=== PATIENT | male | born 1945 | race Caucasian/White ===

== ENCOUNTER → 2017-07-26 | Outpatient (CLI) | payer OTHER | END | disposition home or self-care (01) | LOC: OIH 09:01 | PROVIDERS: ATTEND Family Medicine | DX: J44.9 Chronic obstructive pulmonary disease, unspecified (principal); M47.894 Other spondylosis, thoracic region; M85.88 Other specified disorders of bone density and structure, other site | CPT/HCPCS: 71046 ==

== ENCOUNTER 2018-08-17 11:31 | Inpatient (IN) | payer OTHER | END 2018-08-18 14:05 | disposition left against medical advice (07) | LOC: EDH 11:31 → EDHIP 14:05 → 2DH 21:20 | PROC: 4A023N7 Measurement of Cardiac Sampling and Pressure, Left Heart, Percutaneous Approach (ICD-10-PCS; principal; ~2018-08-17) | PROC: B2111ZZ Fluoroscopy of Multiple Coronary Arteries using Low Osmolar Contrast (ICD-10-PCS; ~2018-08-17) | PROC: B2151ZZ Fluoroscopy of Left Heart using Low Osmolar Contrast (ICD-10-PCS; ~2018-08-17) | DX: I21.4 Non-ST elevation (NSTEMI) myocardial infarction (principal); N17.9 Acute kidney failure, unspecified; I24.9 Acute ischemic heart disease, unspecified; I48.91 Unspecified atrial fibrillation; I10 Essential (primary) hypertension ==

== ENCOUNTER → 2018-09-04 | Outpatient (CLI) | payer OTHER ==
[~2018-09-04] VITALS: Ht 180.3 cm; Wt 85.7 kg
[~2018-09-04] MED LIST: AEC81 PO; AMOX1TAB16 PO; ATOR10 PO; CEFUROXIME SODIUM 1.5 GM VIAL IVP SCH; CHOL400T4 PO; FOLI1TAB15 PO; LAMO100T13 PO; LEVE750T10 PO; LISI-613 PO; METO50TA18 PO; PHEN100C9 PO; SERT100T12 PO
[2018-09-04 12:16] LABS: BASOPHILS % (AUTO) 0.7 % (0.0-5.0); EOSINOPHILS % (AUTO) 8.2 % (0.0-8.0); HEMATOCRIT 36.3 % (42-54); LYMPHOCYTES % (AUTO) 19.7 % (21.0-51.0); MEAN CORPUSCULAR HEMOGLOBIN 32.2 pg (27.0-33.0); MEAN CORPUSCULAR HGB CONC 34.2 g/dL (32.0-36.0); MONOCYTES % (AUTO) 8.8 % (3.0-13.0); NEUTROPHILS % (AUTO) 62.6 % (40.0-77.0); PLATELET COUNT (AUTO) 243 K/uL (130-400); RED BLOOD CELL COUNT(AUTO) 3.86 MIL/uL (4.50-6.20); RED CELL DISTRIBUTION WIDTH 13.3 % (11.0-15.5); WHITE BLOOD COUNT (AUTO) 10.5 K/uL (4.8-10.8)
[2018-09-04 12:22] VITALS: BP 181/103
[2018-09-04 12:29] LABS: HEMOGLOBIN A1C 6.8 % (4.0-6.0)
[2018-09-04 12:33] LABS: ALBUMIN 3.6 g/dL (3.5-5.0); BILIRUBIN,TOTAL 0.2 mg/dL (0.2-1.0); CREATININE 1.5 mg/dL (0.5-1.5); POTASSIUM 5.2 mmol/L (3.5-5.1); TOTAL PROTEIN, SERUM 7.8 g/dL (6.0-8.3)
[2018-09-04 12:34] LABS: INR 0.96 (0.85-1.15); PROTHROMBIN TIME 10.1 SEC (9.6-11.6)
[2018-09-04 13:31] LABS: ABG BASE EXCESS -4.7 mmol/L (-2.0-3.0); ABG HCO3 19.7 mmol/L (21.0-28.0); ABG OXYGEN SATURATION 95.9 % (95.0-99.0); ABG PCO2 35 mmHg (35-48)
== END | disposition home or self-care (01) ==
LOC: DAH 10:00 → EDSTATUS 09-07 07:30
PROVIDERS: ATTEND Thoracic Surgery (Cardiothoracic Vascular Surgery)
DX: I65.23 Occlusion and stenosis of bilateral carotid arteries (principal); I25.10 Atherosclerotic heart disease of native coronary artery without angina pectoris; Z95.1 Presence of aortocoronary bypass graft; Z79.01 Long term (current) use of anticoagulants; I82.90 Acute embolism and thrombosis of unspecified vein; I26.99 Other pulmonary embolism without acute cor pulmonale; Z98.890 Other specified postprocedural states; Z79.899 Other long term (current) drug therapy
CPT/HCPCS: 36415; 36600; 71046; 80053; 80061; 82803; 83036; 85025; 85610; 85730; 86850; 86900; 86901; 93005; 93306; 93880; 94010

== ENCOUNTER → 2019-10-03 | Outpatient (CLI) | payer OTHER ==
[~2019-10-03] MED LIST changes: -AMOX1TAB16 PO; -CEFUROXIME SODIUM 1.5 GM VIAL IVP SCH; -LAMO100T13 PO; +LAMO100T16 PO
== END | disposition home or self-care (01) ==
LOC: OIH 15:43
PROVIDERS: ATTEND Family Medicine
DX: M47.26 Other spondylosis with radiculopathy, lumbar region (principal); M43.8X4 Other specified deforming dorsopathies, thoracic region; M25.78 Osteophyte, vertebrae
CPT/HCPCS: 72100

== ENCOUNTER → 2019-12-18 | Outpatient (CLI) | payer OTHER ==
[~2019-12-18] MED LIST changes: +GADODIAMIDE 10 MMOL/20 ML VIAL IV ONE
== END | disposition home or self-care (01) ==
LOC: RAH 13:48
PROVIDERS: ATTEND Family Medicine
DX: M47.814 Spondylosis without myelopathy or radiculopathy, thoracic region (principal); M48.04 Spinal stenosis, thoracic region; M25.78 Osteophyte, vertebrae
CPT/HCPCS: 72146; A9579

== ENCOUNTER 2020-12-27 20:23 | Inpatient (IN) | payer OTHER ==
[~2020-12-27] VITALS: Ht 180.3 cm; Wt 73.4 kg
[~2020-12-27 20:23] MED LIST changes: -GADODIAMIDE 10 MMOL/20 ML VIAL IV ONE; -LISI-613 PO; +LISI20TA24 PO; +SERT-440 PO; -SERT100T12 PO
[2020-12-27 20:35] VITALS: BP 163/92
[2020-12-27] MEDS ORDERED: IPRATROPIUM/ALBUTEROL SULFATE 3 ML SOLUTION IH SCH (21:30)
[2020-12-27] MEDS ORDERED: MORPHINE 2 MG SYG (2MG/1ML) IVP SCH (21:30)
[2020-12-27] MEDS ORDERED: ONDANSETRON HCL 4 MG/2 ML VIAL IVP SCH (21:30)
[2020-12-27] MEDS ORDERED: IPRATROPIUM/ALBUTEROL SULFATE 3 ML SOLUTION IH ONE (21:32)
[2020-12-27 21:40] LABS: BASOPHILS % (AUTO) 0.4 % (0.0-5.0); EOSINOPHILS % (AUTO) 4.9 % (0.0-8.0); HEMATOCRIT 35.7 % (42-54); LYMPHOCYTES % (AUTO) 11.5 % (21.0-51.0); MEAN CORPUSCULAR HGB CONC 33.6 g/dL (32.0-36.0); MEAN CORPUSCULAR VOLUME 92.2 fL (79-99); MONOCYTES % (AUTO) 8.9 % (3.0-13.0); NEUTROPHILS % (AUTO) 73.6 % (40.0-77.0); PLATELET COUNT (AUTO) 206 K/uL (130-400); RED BLOOD CELL COUNT(AUTO) 3.87 MIL/uL (4.50-6.20); RED CELL DISTRIBUTION WIDTH 12.7 % (11.0-15.5); WHITE BLOOD COUNT (AUTO) 14.6 K/uL (4.8-10.8)
[2020-12-27 21:51] LABS: INR 0.98 (0.85-1.15); PROTHROMBIN TIME 10.7 SEC (9.6-11.6)
[2020-12-27 21:58] LABS: CARBON DIOXIDE 22 mmol/L (21-32); CHLORIDE 103 mmol/L (101-111); CREATININE 1.9 mg/dL (0.5-1.5); GLOMERULAR FILTR. RATE CALC 37 mL/min (>60); GLUCOSE,RANDOM 117 mg/dL (70-105); POTASSIUM 4.4 mmol/L (3.5-5.1); SODIUM SERUM 137 mmol/L (136-145); UREA NITROGEN, BLOOD 36 mg/dL (7-18)
[2020-12-27 22:12] LABS: ALANINE AMINOTRANSFERASE 28 U/L (12-78); ALBUMIN 3.6 g/dL (3.5-5.0); ASPARTATE AMINOTRANSFERASE 24 U/L (10-37); BILIRUBIN,TOTAL 0.2 mg/dL (0.2-1.0); CREATINE KINASE, TOTAL 257 U/L (21-232); LIPASE 185 U/L (114-286); MYOGLOBIN 742 ng/mL (10-92); TOTAL PROTEIN, SERUM 7.7 g/dL (6.0-8.3); TROPONIN I < 0.04 ng/mL (0.00-0.06)
[2020-12-27] MEDS ORDERED: HYDROCODONE/ACETAMINOPHEN 5/325 MG TAB PO ONE (22:45)
[2020-12-27 23:23] LABS: APPEARANCE,URINE Clear (CLEAR); BILIRUBIN,URINE Negative (NEGATIVE); COLOR,URINE Yellow (YELLOW); GLUCOSE, URINE (UA) Negative (NEGATIVE); KETONES,URINE Negative (NEGATIVE); LEUKOCYTE ESTERASE ,URINE Negative (NEGATIVE); NITRATE,URINE Negative (NEGATIVE); OCCULT BLOOD,URINE Small (NEGATIVE); PH,URINE 5.5 (5.0-8.0); PROTEIN,URINE POS 1+ mg/dL (NEGATIVE); UROBILINOGEN,URINE 0.2 mg/dL (0.2-1.0)
[2020-12-27 23:55] LABS: BACTERIA,URINE None Seen /HPF (None Seen); WBC,URINE 0-1 /HPF (0-1)
[2020-12-28] VITALS (9 sets, daily range): BP systolic 147–190; BP diastolic 60–93
[2020-12-28] MEDS ORDERED: SODIUM CHLORIDE 0.9% 500ML 500 ML IV SCH (01:00)
[2020-12-28] MEDS ORDERED: ACETAMINOPHEN 325 MG TAB PO PRN ×2 (01:30)
[2020-12-28] MEDS ORDERED: ONDANSETRON HCL 4 MG/2 ML VIAL IV PRN (01:30)
[2020-12-28] MEDS: IPRATROPIUM/ALBUTEROL SULFATE 3 ML SOLUTION IH SCH ×6 (02:14→23:20)
[2020-12-28 05:35] LABS: HEMATOCRIT 34.6 % (42-54); MEAN CORPUSCULAR HGB CONC 33.8 g/dL (32.0-36.0); MEAN CORPUSCULAR VOLUME 91.8 fL (79-99); RED BLOOD CELL COUNT(AUTO) 3.77 MIL/uL (4.50-6.20); RED CELL DISTRIBUTION WIDTH 12.8 % (11.0-15.5); WHITE BLOOD COUNT (AUTO) 12.4 K/uL (4.8-10.8)
[2020-12-28 05:57] LABS: ALANINE AMINOTRANSFERASE 28 U/L (12-78); ALBUMIN 3.8 g/dL (3.5-5.0); ASPARTATE AMINOTRANSFERASE 30 U/L (10-37); BILIRUBIN,TOTAL 0.4 mg/dL (0.2-1.0); CARBON DIOXIDE 21 mmol/L (21-32); CHLORIDE 102 mmol/L (101-111); CREATININE 1.8 mg/dL (0.5-1.5); GLOMERULAR FILTR. RATE CALC 39 mL/min (>60); GLUCOSE,RANDOM 179 mg/dL (70-105); MYOGLOBIN 446 ng/mL (10-92); POTASSIUM 4.2 mmol/L (3.5-5.1); SODIUM SERUM 136 mmol/L (136-145); TOTAL PROTEIN, SERUM 7.8 g/dL (6.0-8.3); TROPONIN I < 0.04 ng/mL (0.00-0.06); UREA NITROGEN, BLOOD 31 mg/dL (7-18)
[2020-12-28 06:03] LABS: CREATINE KINASE, TOTAL 478 U/L (21-232)
[2020-12-28] MEDS: FAMOTIDINE 20MG TAB 20 MG TAB PO SCH ×2 (08:11→20:59)
[2020-12-28] MEDS: LACTATED RINGERS 1000ML 1,000 ML IV SCH (08:11)
[2020-12-28] MEDS: LEVETIRACETAM 250 MG TABLET PO SCH ×2 (08:11→20:56)
[2020-12-28] MEDS: METOPROLOL TARTRATE 50 MG TAB PO SCH ×2 (08:11→20:59)
[2020-12-28] MEDS: PHENYTOIN SODIUM 100 MG ERCAP PO SCH ×2 (08:11→20:55)
[2020-12-28] MEDS: LAMOTRIGINE 100 MG TABLET PO SCH ×2 (08:11→20:59)
[2020-12-28] MEDS: LISINOPRIL 20 MG TABLET PO SCH (08:12)
[2020-12-28] MEDS: SERTRALINE HCL 50 MG TABLET PO SCH (08:12)
[2020-12-28] MEDS: CEFTRIAXONE SODIUM 1 GM IVP SCH ×2 (12:51→20:59)
[2020-12-28] MEDS ORDERED: LORAZEPAM 2 MG/ML 1 ML VIAL IVP PRN (17:00)
[2020-12-28] MEDS ORDERED: PHARMACY COMMUNICATION MISC PRN (17:00)
[2020-12-28] MEDS ORDERED: CHLORDIAZEPOXIDE HCL 25 MG CAP PO PRN ×2 (17:00)
[2020-12-28] MEDS ORDERED: HYDRALAZINE HCL 20 MG/ML VIAL ONE (20:22)
[2020-12-28] MEDS: NICOTINE 14 MG/ 24 HR PATCH TD SCH (20:51)
[2020-12-28] MEDS: LORAZEPAM 2 MG/ML 1 ML VIAL IVP PRN (21:14)
[2020-12-28] MEDS ORDERED: PHENYTOIN SODIUM 50 MG/ML 2ML VIAL IV SCH (21:30)
[2020-12-28] MEDS ORDERED: LEVETIRACETAM 1,000 MG in SODIUM CHLORIDE 0.9% 100 ML IV SCH (21:30)
[2020-12-28] MEDS ORDERED: LORAZEPAM 2 MG/ML 1 ML VIAL IM PRN (21:45)
[2020-12-28] MEDS ORDERED: LORAZEPAM 2 MG/ML 1 ML VIAL IVP ONE (21:45)
[2020-12-28] MEDS ORDERED: HYDRALAZINE HCL 20 MG/ML VIAL IV SCH (21:45)
[2020-12-29] MEDS: LORAZEPAM 2 MG/ML 1 ML VIAL IVP PRN (00:18)
[2020-12-29] MEDS: IPRATROPIUM/ALBUTEROL SULFATE 3 ML SOLUTION IH SCH ×5 (02:18→22:38)
[2020-12-29] MEDS: KETOROLAC 15MG/ML VIAL (15MG/ML) IV PRN (02:50)
[2020-12-29 03:03] VITALS: BP 139/69
[2020-12-29] MEDS: LACTATED RINGERS 1000ML 1,000 ML IV SCH ×2 (03:24→13:28)
[2020-12-29 04:53] LABS: BASOPHILS % (AUTO) 0.3 % (0.0-5.0); EOSINOPHILS % (AUTO) 0.8 % (0.0-8.0); HEMATOCRIT 28.7 % (42-54); LYMPHOCYTES % (AUTO) 11.3 % (21.0-51.0); MEAN CORPUSCULAR HEMOGLOBIN 31.8 pg (27.0-33.0); MEAN CORPUSCULAR HGB CONC 35.2 g/dL (32.0-36.0); MEAN CORPUSCULAR VOLUME 90.3 fL (79-99); MONOCYTES % (AUTO) 12.2 % (3.0-13.0); NEUTROPHILS % (AUTO) 74.8 % (40.0-77.0); PLATELET COUNT (AUTO) 148 K/uL (130-400); RED BLOOD CELL COUNT(AUTO) 3.18 MIL/uL (4.50-6.20); RED CELL DISTRIBUTION WIDTH 12.8 % (11.0-15.5); WHITE BLOOD COUNT (AUTO) 11.9 K/uL (4.8-10.8)
[2020-12-29 05:14] LABS: ALBUMIN 3.2 g/dL (3.5-5.0); BILIRUBIN,TOTAL 0.5 mg/dL (0.2-1.0); CREATININE 1.3 mg/dL (0.5-1.5); POTASSIUM 3.6 mmol/L (3.5-5.1); TOTAL PROTEIN, SERUM 6.7 g/dL (6.0-8.3)
[2020-12-29 07:30] VITALS: BP 159/80
[2020-12-29] MEDS: CEFTRIAXONE SODIUM 1 GM IVP SCH ×2 (08:45→22:01)
[2020-12-29] MEDS: FOLIC ACID 1 MG TABLET PO SCH (10:47)
[2020-12-29] MEDS: THIAMINE HCL 100 MG/ML 2ML VIAL IM SCH (10:47)
[2020-12-29] MEDS: FAMOTIDINE 20MG TAB 20 MG TAB PO SCH ×2 (10:48→22:00)
[2020-12-29] MEDS: METOPROLOL TARTRATE 50 MG TAB PO SCH ×2 (10:48→22:00)
[2020-12-29] MEDS: NICOTINE 14 MG/ 24 HR PATCH TD SCH (10:48)
[2020-12-29] MEDS: LISINOPRIL 20 MG TABLET PO SCH (10:52)
[2020-12-29] MEDS: LEVETIRACETAM 250 MG TABLET PO SCH ×2 (10:53→22:01)
[2020-12-29] MEDS: LAMOTRIGINE 100 MG TABLET PO SCH ×2 (10:53→22:00)
[2020-12-29] MEDS: MULTIVITAMIN TABLET PO SCH (10:53)
[2020-12-29] MEDS: SERTRALINE HCL 50 MG TABLET PO SCH (10:53)
[2020-12-29] MEDS: PHENYTOIN SODIUM 100 MG ERCAP PO SCH ×2 (10:54→22:00)
[2020-12-29] MEDS: SODIUM BICARB 8.4% 50ML SYRING 150 MEQ in SODIUM CHLORIDE 0.9% 1000ML 1,000 ML IVP SCH ×2 (10:59→18:33)
[2020-12-29 11:00] VITALS: BP 170/81
[2020-12-29 16:00] VITALS: BP 157/73
[2020-12-29 19:50] VITALS: BP 144/83
[2020-12-30] VITALS: BP 135/69
[2020-12-30] MEDS: IPRATROPIUM/ALBUTEROL SULFATE 3 ML SOLUTION IH SCH ×6 (02:07→22:54)
[2020-12-30 03:46] VITALS: BP 129/78
[2020-12-30 04:55] LABS: BASOPHILS % (AUTO) 0.3 % (0.0-5.0); EOSINOPHILS % (AUTO) 1.5 % (0.0-8.0); HEMATOCRIT 27.3 % (42-54); LYMPHOCYTES % (AUTO) 11.7 % (21.0-51.0); MEAN CORPUSCULAR HEMOGLOBIN 31.4 pg (27.0-33.0); MEAN CORPUSCULAR HGB CONC 34.1 g/dL (32.0-36.0); MEAN CORPUSCULAR VOLUME 92.2 fL (79-99); MONOCYTES % (AUTO) 12.7 % (3.0-13.0); PLATELET COUNT (AUTO) 123 K/uL (130-400); RED BLOOD CELL COUNT(AUTO) 2.96 MIL/uL (4.50-6.20); WHITE BLOOD COUNT (AUTO) 11.3 K/uL (4.8-10.8)
[2020-12-30 05:14] LABS: ALBUMIN 2.8 g/dL (3.5-5.0); BILIRUBIN,TOTAL 0.4 mg/dL (0.2-1.0); CREATININE 1.5 mg/dL (0.5-1.5); POTASSIUM 3.3 mmol/L (3.5-5.1); TOTAL PROTEIN, SERUM 6.3 g/dL (6.0-8.3)
[2020-12-30 07:56] VITALS: BP 168/85
[2020-12-30] MEDS: NICOTINE 14 MG/ 24 HR PATCH TD SCH (08:31)
[2020-12-30] MEDS: CEFTRIAXONE SODIUM 1 GM IVP SCH ×2 (08:31→14:46)
[2020-12-30] MEDS: LAMOTRIGINE 100 MG TABLET PO SCH ×2 (08:32→20:27)
[2020-12-30] MEDS: LISINOPRIL 20 MG TABLET PO SCH (08:32)
[2020-12-30] MEDS: MULTIVITAMIN TABLET PO SCH (08:32)
[2020-12-30] MEDS: PHENYTOIN SODIUM 100 MG ERCAP PO SCH ×2 (08:32→20:27)
[2020-12-30] MEDS: METOPROLOL TARTRATE 50 MG TAB PO SCH ×2 (08:32→20:27)
[2020-12-30] MEDS: FAMOTIDINE 20MG TAB 20 MG TAB PO SCH ×2 (08:32→20:27)
[2020-12-30] MEDS: FOLIC ACID 1 MG TABLET PO SCH (08:33)
[2020-12-30] MEDS: LEVETIRACETAM 250 MG TABLET PO SCH ×2 (08:33→20:27)
[2020-12-30] MEDS: SERTRALINE HCL 50 MG TABLET PO SCH (08:33)
[2020-12-30] MEDS: KETOROLAC 15MG/ML VIAL (15MG/ML) IV PRN (11:28)
[2020-12-30 11:42] VITALS: BP 141/75
[2020-12-30] MEDS ORDERED: POTASSIUM CHLORIDE 10% ELIXIR 20 MEQ/15 ML UDCUP PO SCH (12:15)
[2020-12-30] MEDS: THIAMINE HCL 100 MG/ML 2ML VIAL IM SCH (14:47)
[2020-12-30 15:40] VITALS: BP 133/71
[2020-12-30 19:34] VITALS: BP 138/65
[2020-12-31] VITALS: BP 157/70
[2020-12-31] MEDS: IPRATROPIUM/ALBUTEROL SULFATE 3 ML SOLUTION IH SCH ×6 (02:27→23:11)
[2020-12-31 03:50] VITALS: BP 164/84
[2020-12-31 05:26] LABS: BASOPHILS % (AUTO) 0.4 % (0.0-5.0); HEMATOCRIT 26.3 % (42-54); LYMPHOCYTES % (AUTO) 16.3 % (21.0-51.0); MEAN CORPUSCULAR HEMOGLOBIN 31.9 pg (27.0-33.0); MEAN CORPUSCULAR HGB CONC 33.8 g/dL (32.0-36.0); MEAN CORPUSCULAR VOLUME 94.3 fL (79-99); MONOCYTES % (AUTO) 12.7 % (3.0-13.0); NEUTROPHILS % (AUTO) 67.1 % (40.0-77.0); PLATELET COUNT (AUTO) 140 K/uL (130-400); RED BLOOD CELL COUNT(AUTO) 2.79 MIL/uL (4.50-6.20); WHITE BLOOD COUNT (AUTO) 10.4 K/uL (4.8-10.8)
[2020-12-31] MEDS ORDERED: ACETAMINOPHEN-CODEINE 300/30MG TAB PO PRN (05:30)
[2020-12-31 05:46] LABS: ALBUMIN 2.6 g/dL (3.5-5.0); BILIRUBIN,TOTAL 0.4 mg/dL (0.2-1.0); CREATININE 1.7 mg/dL (0.5-1.5); POTASSIUM 3.6 mmol/L (3.5-5.1); TOTAL PROTEIN, SERUM 6.3 g/dL (6.0-8.3)
[2020-12-31] MEDS: SERTRALINE HCL 50 MG TABLET PO SCH (08:39)
[2020-12-31] MEDS: LAMOTRIGINE 100 MG TABLET PO SCH ×2 (08:39→21:19)
[2020-12-31] MEDS: PHENYTOIN SODIUM 100 MG ERCAP PO SCH ×2 (08:39→21:17)
[2020-12-31] MEDS: LEVETIRACETAM 250 MG TABLET PO SCH ×2 (08:39→21:18)
[2020-12-31] MEDS: FAMOTIDINE 20MG TAB 20 MG TAB PO SCH ×2 (08:40→21:19)
[2020-12-31] MEDS: METOPROLOL TARTRATE 50 MG TAB PO SCH ×2 (08:40→21:18)
[2020-12-31] MEDS: THIAMINE HCL 100 MG/ML 2ML VIAL IM SCH (08:41)
[2020-12-31] MEDS: MULTIVITAMIN TABLET PO SCH (08:41)
[2020-12-31] MEDS: FOLIC ACID 1 MG TABLET PO SCH (08:41)
[2020-12-31] MEDS: LISINOPRIL 20 MG TABLET PO SCH (08:41)
[2020-12-31] MEDS: NICOTINE 14 MG/ 24 HR PATCH TD SCH (08:42)
[2020-12-31] MEDS: CEFTRIAXONE SODIUM 1 GM IVP SCH ×2 (08:42→21:19)
[2020-12-31 19:00] VITALS: BP 170/79
[2020-12-31] MEDS ORDERED: ISOSORBIDE MONO 30MG TAB SR PO SCH (19:00)
[2020-12-31] MEDS: HYDRALAZINE HCL 10 MG TABLET PO SCH (21:18)
[2021-01-01] VITALS: BP 140/77
[2021-01-01] MEDS: IPRATROPIUM/ALBUTEROL SULFATE 3 ML SOLUTION IH SCH ×6 (02:00→22:00)
[2021-01-01 04:00] VITALS: BP 154/78
[2021-01-01 05:23] LABS: HEMATOCRIT 29.7 % (42-54); MEAN CORPUSCULAR HEMOGLOBIN 30.9 pg (27.0-33.0); MEAN CORPUSCULAR VOLUME 93.7 fL (79-99); RED BLOOD CELL COUNT(AUTO) 3.17 MIL/uL (4.50-6.20); RED CELL DISTRIBUTION WIDTH 12.7 % (11.0-15.5); WHITE BLOOD COUNT (AUTO) 11.4 K/uL (4.8-10.8)
[2021-01-01 05:42] LABS: % IRON SATURATION 17.7 % (30-44)
[2021-01-01 06:06] LABS: CARBON DIOXIDE 24 mmol/L (21-32); CHLORIDE 104 mmol/L (101-111); CREATININE 1.7 mg/dL (0.5-1.5); GLOMERULAR FILTR. RATE CALC 42 mL/min (>60); GLUCOSE,RANDOM 167 mg/dL (70-105); PHOSPHORUS 3.9 mg/dL (2.5-4.9); POTASSIUM 4.2 mmol/L (3.5-5.1); SODIUM SERUM 140 mmol/L (136-145); UREA NITROGEN, BLOOD 28 mg/dL (7-18)
[2021-01-01] MEDS: CEFTRIAXONE SODIUM 1 GM IVP SCH (09:45)
[2021-01-01] MEDS: NICOTINE 14 MG/ 24 HR PATCH TD SCH (09:46)
[2021-01-01] MEDS: LAMOTRIGINE 100 MG TABLET PO SCH ×2 (09:46→20:31)
[2021-01-01] MEDS: SERTRALINE HCL 50 MG TABLET PO SCH (09:47)
[2021-01-01] MEDS: ISOSORBIDE MONO 30MG TAB SR PO SCH (09:47)
[2021-01-01] MEDS: PHENYTOIN SODIUM 100 MG ERCAP PO SCH ×2 (09:47→20:31)
[2021-01-01] MEDS: HYDRALAZINE HCL 10 MG TABLET PO SCH ×3 (09:47→20:45)
[2021-01-01] MEDS: FAMOTIDINE 20MG TAB 20 MG TAB PO SCH ×2 (09:48→20:45)
[2021-01-01] MEDS: LEVETIRACETAM 250 MG TABLET PO SCH ×2 (09:48→20:30)
[2021-01-01] MEDS: MULTIVITAMIN TABLET PO SCH (09:48)
[2021-01-01] MEDS: METOPROLOL TARTRATE 50 MG TAB PO SCH ×2 (09:48→20:45)
[2021-01-01 12:06] VITALS: BP 117/82
[2021-01-01 23:04] VITALS: BP 170/90
[2021-01-02 05:15] VITALS: BP 182/86
[2021-01-02] MEDS: LABETALOL 20 MG/4 ML DISP.SYRIN IV PRN (05:22)
[2021-01-02] MEDS: IPRATROPIUM/ALBUTEROL SULFATE 3 ML SOLUTION IH SCH ×5 (06:25→22:25)
[2021-01-02] MEDS: NICOTINE 14 MG/ 24 HR PATCH TD SCH (10:26)
[2021-01-02] MEDS: MULTIVITAMIN TABLET PO SCH (10:27)
[2021-01-02] MEDS: SERTRALINE HCL 50 MG TABLET PO SCH (10:27)
[2021-01-02] MEDS: FAMOTIDINE 20MG TAB 20 MG TAB PO SCH ×2 (10:27→22:08)
[2021-01-02] MEDS: LEVETIRACETAM 250 MG TABLET PO SCH ×2 (10:27→22:08)
[2021-01-02] MEDS: ISOSORBIDE MONO 30MG TAB SR PO SCH (10:27)
[2021-01-02] MEDS: LAMOTRIGINE 100 MG TABLET PO SCH ×2 (10:27→22:08)
[2021-01-02] MEDS: PHENYTOIN SODIUM 100 MG ERCAP PO SCH ×2 (10:27→22:07)
[2021-01-02] MEDS: METOPROLOL TARTRATE 50 MG TAB PO SCH ×3 (10:28→22:07)
[2021-01-02] MEDS: HYDRALAZINE HCL 10 MG TABLET PO SCH ×3 (10:30→22:07)
[2021-01-02 11:53] VITALS: BP 125/75
[2021-01-02] MEDS ORDERED: SODIUM CHLORIDE 0.9% 1000ML 1,000 ML IV SCH (14:00)
[2021-01-02] MEDS ORDERED: COMPOUND IV MISC 1 EACH IVSOLN MISC PRN (14:00)
[2021-01-02] MEDS: IRON SUCROSE COMPLEX 300 MG in SODIUM CHLORIDE 0.9% 50 ML IV SCH (15:06)
[2021-01-02 17:20] VITALS: BP 132/64
[2021-01-02 18:37] LABS: BASOPHILS % (AUTO) 0.4 % (0.0-5.0); EOSINOPHILS % (AUTO) 4.5 % (0.0-8.0); LYMPHOCYTES % (AUTO) 17.6 % (21.0-51.0); MEAN CORPUSCULAR HEMOGLOBIN 33.3 pg (27.0-33.0); MEAN CORPUSCULAR HGB CONC 35.4 g/dL (32.0-36.0); MEAN CORPUSCULAR VOLUME 94.1 fL (79-99); MONOCYTES % (AUTO) 12.6 % (3.0-13.0); NEUTROPHILS % (AUTO) 64.4 % (40.0-77.0); PLATELET COUNT (AUTO) 171 K/uL (130-400); RED BLOOD CELL COUNT(AUTO) 2.55 MIL/uL (4.50-6.20); RED CELL DISTRIBUTION WIDTH 12.8 % (11.0-15.5); WHITE BLOOD COUNT (AUTO) 8.4 K/uL (4.8-10.8)
[2021-01-02 18:47] LABS: CREATININE 1.5 mg/dL (0.5-1.5); POTASSIUM 3.3 mmol/L (3.5-5.1)
[2021-01-02 20:00] VITALS: BP 153/78
[2021-01-02] MEDS ORDERED: METOPROLOL TARTRATE 50 MG TAB PO SCH (21:00)
[2021-01-03] VITALS (7 sets, daily range): BP systolic 112–186; BP diastolic 72–93
[2021-01-03] MEDS: IPRATROPIUM/ALBUTEROL SULFATE 3 ML SOLUTION IH SCH ×5 (02:25→22:00)
[2021-01-03] MEDS: LEVETIRACETAM 250 MG TABLET PO SCH ×2 (09:38→20:15)
[2021-01-03] MEDS: HYDRALAZINE HCL 10 MG TABLET PO SCH ×3 (09:39→20:16)
[2021-01-03] MEDS: PHENYTOIN SODIUM 100 MG ERCAP PO SCH ×2 (09:39→20:16)
[2021-01-03] MEDS: METOPROLOL TARTRATE 50 MG TAB PO SCH ×3 (09:39→20:16)
[2021-01-03] MEDS: LAMOTRIGINE 100 MG TABLET PO SCH ×2 (09:39→20:16)
[2021-01-03] MEDS: SERTRALINE HCL 50 MG TABLET PO SCH (09:39)
[2021-01-03] MEDS: NICOTINE 14 MG/ 24 HR PATCH TD SCH (09:39)
[2021-01-03] MEDS: FAMOTIDINE 20MG TAB 20 MG TAB PO SCH ×2 (09:40→20:16)
[2021-01-03] MEDS: ISOSORBIDE MONO 30MG TAB SR PO SCH (09:40)
[2021-01-03] MEDS: MULTIVITAMIN TABLET PO SCH (09:40)
[2021-01-03] MEDS: IRON SUCROSE COMPLEX 300 MG in SODIUM CHLORIDE 0.9% 50 ML IV SCH (09:43)
[2021-01-04] MEDS: IPRATROPIUM/ALBUTEROL SULFATE 3 ML SOLUTION IH SCH ×6 (02:00→22:29)
[2021-01-04 04:00] VITALS: BP 166/79
[2021-01-04 06:14] VITALS: BP 152/76
[2021-01-04 07:59] VITALS: BP 174/95
[2021-01-04] MEDS: HYDRALAZINE HCL 10 MG TABLET PO SCH ×3 (08:40→20:18)
[2021-01-04] MEDS: ISOSORBIDE MONO 30MG TAB SR PO SCH (08:41)
[2021-01-04] MEDS: PHENYTOIN SODIUM 100 MG ERCAP PO SCH ×2 (08:41→20:18)
[2021-01-04] MEDS: LEVETIRACETAM 250 MG TABLET PO SCH ×2 (08:42→20:18)
[2021-01-04] MEDS: MULTIVITAMIN TABLET PO SCH (08:43)
[2021-01-04] MEDS: LAMOTRIGINE 100 MG TABLET PO SCH ×2 (08:43→20:18)
[2021-01-04] MEDS: METOPROLOL TARTRATE 50 MG TAB PO SCH ×3 (08:43→20:18)
[2021-01-04] MEDS: SERTRALINE HCL 50 MG TABLET PO SCH (08:44)
[2021-01-04] MEDS: FAMOTIDINE 20MG TAB 20 MG TAB PO SCH ×2 (08:44→20:18)
[2021-01-04] MEDS: LABETALOL 20 MG/4 ML DISP.SYRIN IV PRN (08:45)
[2021-01-04] MEDS: NICOTINE 14 MG/ 24 HR PATCH TD SCH (08:45)
[2021-01-04 11:12] VITALS: BP 140/73
[2021-01-04 16:00] VITALS: BP 145/76
[2021-01-04 19:47] VITALS: BP 156/71
[2021-01-04] MEDS: IRON SUCROSE COMPLEX 300 MG in SODIUM CHLORIDE 0.9% 50 ML IV SCH (21:31)
[2021-01-05] VITALS (7 sets, daily range): BP systolic 149–177; BP diastolic 72–90
[2021-01-05] MEDS ORDERED: KCL 20 MEQ ERTAB PO ONE (00:15)
[2021-01-05] MEDS: LABETALOL 20 MG/4 ML DISP.SYRIN IV PRN (00:17)
[2021-01-05] MEDS: IPRATROPIUM/ALBUTEROL SULFATE 3 ML SOLUTION IH SCH ×6 (02:00→22:00)
[2021-01-05 04:55] LABS: HEMATOCRIT 28.3 % (42-54); MEAN CORPUSCULAR HEMOGLOBIN 30.7 pg (27.0-33.0); MEAN CORPUSCULAR HGB CONC 33.6 g/dL (32.0-36.0); MEAN CORPUSCULAR VOLUME 91.6 fL (79-99); RED BLOOD CELL COUNT(AUTO) 3.09 MIL/uL (4.50-6.20); RED CELL DISTRIBUTION WIDTH 12.5 % (11.0-15.5); WHITE BLOOD COUNT (AUTO) 9.6 K/uL (4.8-10.8)
[2021-01-05 05:22] LABS: ALBUMIN 2.8 g/dL (3.5-5.0); BILIRUBIN,TOTAL 0.4 mg/dL (0.2-1.0); CREATININE 1.8 mg/dL (0.5-1.5); MAGNESIUM 2.1 mg/dL (1.80-2.40); PHOSPHORUS 3.6 mg/dL (2.5-4.9); POTASSIUM 4.2 mmol/L (3.5-5.1)
[2021-01-05] MEDS: IRON SUCROSE COMPLEX 300 MG in SODIUM CHLORIDE 0.9% 50 ML IV SCH (09:44)
[2021-01-05] MEDS: LEVETIRACETAM 250 MG TABLET PO SCH ×2 (09:46→21:18)
[2021-01-05] MEDS: PHENYTOIN SODIUM 100 MG ERCAP PO SCH ×2 (09:46→21:18)
[2021-01-05] MEDS: ISOSORBIDE MONO 30MG TAB SR PO SCH (09:46)
[2021-01-05] MEDS: HYDRALAZINE HCL 10 MG TABLET PO SCH ×3 (09:46→21:19)
[2021-01-05] MEDS: SERTRALINE HCL 50 MG TABLET PO SCH (09:47)
[2021-01-05] MEDS: LAMOTRIGINE 100 MG TABLET PO SCH ×2 (09:47→21:18)
[2021-01-05] MEDS: FAMOTIDINE 20MG TAB 20 MG TAB PO SCH ×2 (09:47→21:18)
[2021-01-05] MEDS: MULTIVITAMIN TABLET PO SCH (09:47)
[2021-01-05] MEDS: METOPROLOL TARTRATE 50 MG TAB PO SCH ×3 (09:47→21:18)
[2021-01-05] MEDS: NICOTINE 14 MG/ 24 HR PATCH TD SCH (09:48)
[2021-01-05] MEDS ORDERED: DOXYCYCLINE 100MG IVPB (VIAL) IVPB SCH (17:15)
[2021-01-05] MEDS ORDERED: 0.9% SODIUM CHLORIDE 250 ML IV BAG IVPB SCH (17:15)
[2021-01-05] MEDS: DOXYCYCLINE 100MG+NS 250ML 250 ML IV SCH (18:29)
[2021-01-05] MEDS: AMLODIPINE BESYLATE 5 MG TAB PO SCH (18:30)
[2021-01-05] MEDS: CEFTRIAXONE SODIUM 1 GM IVP SCH (22:42)
[2021-01-06] VITALS: BP 161/74
[2021-01-06 04:00] VITALS: BP 161/62
[2021-01-06] MEDS ORDERED: SODIUM CHLORIDE 0.9% 250 ML ONE (04:56)
[2021-01-06] MEDS: DOXYCYCLINE 100MG+NS 250ML 250 ML IV SCH (04:59)
[2021-01-06 05:12] LABS: BASOPHILS % (AUTO) 0.7 % (0.0-5.0); EOSINOPHILS % (AUTO) 6.4 % (0.0-8.0); HEMATOCRIT 30.6 % (42-54); LYMPHOCYTES % (AUTO) 18.8 % (21.0-51.0); MEAN CORPUSCULAR HEMOGLOBIN 30.8 pg (27.0-33.0); MEAN CORPUSCULAR HGB CONC 33.7 g/dL (32.0-36.0); MEAN CORPUSCULAR VOLUME 91.6 fL (79-99); MONOCYTES % (AUTO) 13.5 % (3.0-13.0); NEUTROPHILS % (AUTO) 59.6 % (40.0-77.0); PLATELET COUNT (AUTO) 312 K/uL (130-400); RED BLOOD CELL COUNT(AUTO) 3.34 MIL/uL (4.50-6.20); RED CELL DISTRIBUTION WIDTH 12.7 % (11.0-15.5); WHITE BLOOD COUNT (AUTO) 10.7 K/uL (4.8-10.8)
[2021-01-06 05:17] LABS: ALBUMIN 3.1 g/dL (3.5-5.0); BILIRUBIN,TOTAL 0.4 mg/dL (0.2-1.0); CREATININE 1.8 mg/dL (0.5-1.5); CRP QUANTITATIVE 113.6 mg/L (0.00-9.0); POTASSIUM 4.2 mmol/L (3.5-5.1); TOTAL PROTEIN, SERUM 7.6 g/dL (6.0-8.3)
[2021-01-06 08:30] VITALS: BP 142/71
[2021-01-06] MEDS: IPRATROPIUM/ALBUTEROL SULFATE 3 ML SOLUTION IH SCH ×4 (10:00→18:00)
[2021-01-06] MEDS: NICOTINE 14 MG/ 24 HR PATCH TD SCH (10:26)
[2021-01-06] MEDS: CEFTRIAXONE SODIUM 1 GM IVP SCH (10:26)
[2021-01-06] MEDS: IRON SUCROSE COMPLEX 300 MG in SODIUM CHLORIDE 0.9% 50 ML IV SCH (10:26)
[2021-01-06] MEDS: LEVETIRACETAM 250 MG TABLET PO SCH (10:27)
[2021-01-06] MEDS: ISOSORBIDE MONO 30MG TAB SR PO SCH (10:27)
[2021-01-06] MEDS: FAMOTIDINE 20MG TAB 20 MG TAB PO SCH (10:27)
[2021-01-06] MEDS: PHENYTOIN SODIUM 100 MG ERCAP PO SCH (10:27)
[2021-01-06] MEDS: SERTRALINE HCL 50 MG TABLET PO SCH (10:27)
[2021-01-06] MEDS: LAMOTRIGINE 100 MG TABLET PO SCH (10:27)
[2021-01-06] MEDS: MULTIVITAMIN TABLET PO SCH (10:27)
[2021-01-06] MEDS: AMLODIPINE BESYLATE 5 MG TAB PO SCH (10:27)
[2021-01-06] MEDS: METOPROLOL TARTRATE 50 MG TAB PO SCH (10:32)
[2021-01-06] MEDS: HYDRALAZINE HCL 10 MG TABLET PO SCH (10:35)
[2021-01-06 11:48] VITALS: BP 167/81
== END 2021-01-06 14:00 | DRG 552 ==
LOC: EDH 20:50 → OBSVTOIN 12-28 01:25 → EDHIP 12-28 01:25 → 3DH 12-28 09:36 → 3BH 01-03 17:35
PROVIDERS: ADMIT Family Medicine; ATTEND Family Medicine
DX: S22.069A Unspecified fracture of T7-T8 vertebra, initial encounter for closed fracture (principal); M62.82 Rhabdomyolysis; S92.332A Displaced fracture of third metatarsal bone, left foot, initial encounter for closed fracture; S22.079A Unspecified fracture of T9-T10 vertebra, initial encounter for closed fracture; S22.089A Unspecified fracture of T11-T12 vertebra, initial encounter for closed fracture; S41.112A Laceration without foreign body of left upper arm, initial encounter; S92.342A Displaced fracture of fourth metatarsal bone, left foot, initial encounter for closed fracture; S92.352A Displaced fracture of fifth metatarsal bone, left foot, initial encounter for closed fracture; S20.219A Contusion of unspecified front wall of thorax, initial encounter; S20.312A Abrasion of left front wall of thorax, initial encounter; S51.811A Laceration without foreign body of right forearm, initial encounter; G40.909 Epilepsy, unspecified, not intractable, without status epilepticus; S41.111A Laceration without foreign body of right upper arm, initial encounter; E87.6 Hypokalemia; F17.210 Nicotine dependence, cigarettes, uncomplicated; I10 Essential (primary) hypertension; I25.10 Atherosclerotic heart disease of native coronary artery without angina pectoris; I48.91 Unspecified atrial fibrillation; J44.9 Chronic obstructive pulmonary disease, unspecified; S00.81XA Abrasion of other part of head, initial encounter; G51.0 Bell's palsy; G93.89 Other specified disorders of brain; K40.20 Bilateral inguinal hernia, without obstruction or gangrene, not specified as recurrent; K57.90 Diverticulosis of intestine, part unspecified, without perforation or abscess without bleeding; M19.90 Unspecified osteoarthritis, unspecified site; M41.9 Scoliosis, unspecified; M85.80 Other specified disorders of bone density and structure, unspecified site; N20.0 Calculus of kidney; S90.822A Blister (nonthermal), left foot, initial encounter; V49.9XXA Car occupant (driver) (passenger) injured in unspecified traffic accident, initial encounter; Y93.89 Activity, other specified; Y92.488 Other paved roadways as the place of occurrence of the external cause; Y99.8 Other external cause status; Z86.73 Personal history of transient ischemic attack (TIA), and cerebral infarction without residual deficits; Z87.81 Personal history of (healed) traumatic fracture; Z95.5 Presence of coronary angioplasty implant and graft
CPT/HCPCS: 36415; 70450; 71045; 71250; 72125; 72146; 72148; 73630; 73718; 74176; 80048; 80053; 80177; 80185; 81001; 82270; 82550; 82607; 82728; 82746; 83540; 83550; 83690; 83735; 83874; 84100; 84145; 84484; 85025; 85027; 85610; 86140; 86850; 86900; 86901; 93005; 94640; 94664; 97039; G0378; J0360; J0696; J1165; J1756; J1885; J1953; J2060; J2405; J3411; J3490; J7030; J7050; J7120

== ENCOUNTER 2023-07-29 01:48 | Emergency (ER) | payer OTHER ==
[2023-07-29] MEDS ORDERED: 0.9%NACL 1000ML 1,000 ML IV ONE ×2 (02:30→05:00)
[2023-07-29 03:33] LABS: APPEARANCE,URINE CLEAR (CLEAR); BILIRUBIN,URINE NEGATIVE (NEGATIVE); COLOR,URINE LIGHT-YELLOW (YELLOW); GLUCOSE, URINE (UA) 30 mg/dL (NEGATIVE); KETONES,URINE NEGATIVE (NEGATIVE); LEUKOCYTE ESTERASE ,URINE NEGATIVE Leu/uL (NEGATIVE); NITRATE,URINE NEGATIVE (NEGATIVE); OCCULT BLOOD,URINE MODERATE (NEGATIVE); PROTEIN,URINE 70 mg/dL (NEGATIVE); UROBILINOGEN,URINE 0.2 mg/dL (0.2-1.0)
[2023-07-29 03:34] LABS: ADD UA MICROSCOPIC YES
[2023-07-29 03:38] LABS: BACTERIA,URINE RARE /HPF (None Seen); MUCUS,URINE RARE LPF (None Seen); RBC,URINE 0-1 /HPF (0-1); SQUAMOUS EPITHELIAL CELL,UR RARE /HPF (0-2); WBC,URINE 0-1 /HPF (0-1)
[2023-07-29 04:00] LABS: HEMATOCRIT 26.2 % (42-54); MEAN CORPUSCULAR HEMOGLOBIN 31.7 pg (27.0-33.0); MEAN CORPUSCULAR HGB CONC 33.6 g/dL (32.0-36.0); MEAN CORPUSCULAR VOLUME 94.2 fL (79-99); RED BLOOD CELL COUNT(AUTO) 2.78 MIL/uL (4.50-6.20); RED CELL DISTRIBUTION WIDTH 13.7 % (11.0-15.5); WHITE BLOOD COUNT (AUTO) 11.2 K/uL (4.8-10.8)
[2023-07-29 04:16] LABS: CREATININE 2.5 mg/dL (0.5-1.5); POTASSIUM 4.1 mmol/L (3.5-5.1)
[2023-07-29] MEDS ORDERED: IOHEXOL-350 75 ML VIAL IV ONE (04:45)
[2023-07-29 10:34] VITALS: BP 144/57; PULSE 72; RESP 18; O2SAT 95
[2023-07-29] MEDS ORDERED: HYDR-4060 PO (10:57)
== END 2023-07-29 11:42 | disposition home or self-care (01) ==
LOC: EDH 01:48
DX: S05.11XA Contusion of eyeball and orbital tissues, right eye, initial encounter (principal); I10 Essential (primary) hypertension; E11.9 Type 2 diabetes mellitus without complications; E78.00 Pure hypercholesterolemia, unspecified; Z79.82 Long term (current) use of aspirin; Z79.899 Other long term (current) drug therapy; Z98.890 Other specified postprocedural states; W18.39XA Other fall on same level, initial encounter; Y93.89 Activity, other specified; Y92.89 Other specified places as the place of occurrence of the external cause; Y99.8 Other external cause status
CPT/HCPCS: 99285; 70450; 96360; 96361; 82550; 80048; 85027; 83605; 81001; 36415; 72125; 71260; 70486; 74177; J7030 ×2; Q9967